=== PATIENT | female | born 1995 | race African-American/Black ===

== ENCOUNTER 2016-08-04 22:09 | Emergency (ER) | payer OTHER ==
[2016-08-04 22:41] LABS: Pregu Control Bar Appear? YES (CONTROL BAR); Specific Gravity 1.029 (1.002-1.036)
[2016-08-04] MEDS ORDERED: predniSONE 20 MG TAB ONE (22:47)
[2016-08-04] MEDS ORDERED: Azithromycin 250 MG TAB ONE (22:47)
[2016-08-04] MEDS ORDERED: Benzonatate 100 MG CAP ONE (22:47)
== END 2016-08-04 22:58 | disposition home or self-care (01) ==
LOC: NAV ERS 22:09
DX: J20.9 Acute bronchitis, unspecified (principal)
CPT/HCPCS: 81025; 94640; J7506; J7620

== ENCOUNTER 2016-11-02 21:44 | Emergency (ER) | payer OTHER, SELFPAY ==
[2016-11-02 22:17] LABS: Bilirubin Negative (Negative); Blood, Urine Negative (Negative); Clarity Clear (Clear); Glucose, Urine (Dipstick) Negative (Negative); Leukocyte Negative (Negative); Nitrite Negative (Negative); Protein, Urine (Dipstick) Negative (Neg-Trace); pH, Urine 7.5 (5.0-9.0)
[2016-11-02 22:18] LABS: Pregnancy Test - Urine (BHCG) POSITIVE (NEGATIVE); Pregu Control Background? CLEAR/WHITE (CLR/WHITE); Pregu Control Bar Appear? YES (CONTROL BAR)
[2016-11-02 22:24] LABS: Amphetamine Not Detected (NotDetected); Barbiturates Screen Not Detected (NotDetected); Benzodiazepine Screen Not Detected (NotDetected); Cocaine Metabolite Screen Not Detected (NotDetected); Medtox Control Line Valid? VALID (VALID); Methadone Not Detected (NotDetected); Methamphetamine Not Detected (NotDetected); Opiate Screen Not Detected (NotDetected); Oxycodone Screen Not Detected (NotDetected); Phencyclidine (PCP) Not Detected (NotDetected); THC/Cannabinoid Screen Not Detected (NotDetected); Tricyclic Screen Not Detected (NotDetected)
[2016-11-02] MEDS ORDERED: Acetaminophen 325 MG TAB ONE (22:36)
== END 2016-11-02 22:46 | disposition home or self-care (01) ==
LOC: NAV ERS 21:44
DX: O99.89 Other specified diseases and conditions complicating pregnancy, childbirth and the puerperium (principal); R51 Headache
CPT/HCPCS: 80306; 81003; 81025; 99284

== ENCOUNTER 2016-11-07 12:36 | Emergency (ER) | payer SELFPAY | END 2016-11-07 14:04 | disposition home or self-care (01) | LOC: NAV ERS 12:36 | DX: O20.0 Threatened abortion (principal) | CPT/HCPCS: 99283 ==

== ENCOUNTER 2017-03-04 20:25 | Emergency (ER) | payer OTHER, SELFPAY ==
[2017-03-04] MEDS ORDERED: Ibuprofen 800 MG TAB ONE (20:45)
== END 2017-03-04 20:50 | disposition home or self-care (01) ==
LOC: NAV ERS 20:25
DX: S13.9XXA Sprain of joints and ligaments of unspecified parts of neck, initial encounter (principal); V49.88XA Car occupant (driver) (passenger) injured in other specified transport accidents, initial encounter
CPT/HCPCS: 99283

== ENCOUNTER 2018-04-09 01:00 | Emergency (ER) | payer OTHER, SELFPAY ==
[2018-04-09] MEDS ORDERED: Bupivacaine 0.5% 10 ML VIAL ONE (01:12)
[2018-04-09] MEDS ORDERED: Penicillin V Potassium 250 MG TAB ONE (02:24)
== END 2018-04-09 02:30 | disposition home or self-care (01) ==
LOC: NAV ERS 01:00
DX: K08.89 Other specified disorders of teeth and supporting structures (principal)
CPT/HCPCS: 96372; J3490

== ENCOUNTER 2018-07-03 21:54 | Emergency (ER) | payer SELFPAY ==
[2018-07-03] MEDS ORDERED: Bupivacaine 0.5% 10 ML VIAL ONE (22:06)
[2018-07-03] MEDS ORDERED: Ketorolac Tromethamine 30 MG/ML VIAL ONE (22:22)
== END 2018-07-03 22:45 | disposition home or self-care (01) ==
LOC: NAV ERS 21:54
DX: K08.89 Other specified disorders of teeth and supporting structures (principal)
CPT/HCPCS: 64400; 96372; J1885; J3490

== ENCOUNTER 2018-07-04 17:33 | Emergency (ER) | payer SELFPAY ==
[2018-07-04] MEDS ORDERED: Bupivacaine 0.5% 10 ML VIAL ONE (17:58)
[2018-07-04] MEDS ORDERED: Lidocaine 1% w/Epinephrine 1:100K 30 ML VIAL ONE (17:58)
== END 2018-07-04 18:10 | disposition home or self-care (01) ==
LOC: NAV ERS 17:33
DX: K08.89 Other specified disorders of teeth and supporting structures (principal)
CPT/HCPCS: 64400; J2001; J3490

== ENCOUNTER → 2019-09-26 | Emergency (ER) | payer OTHER, SELFPAY ==
[2019-09-26 17:33] LABS: Bilirubin Negative (Negative); Blood, Urine Negative (Negative); Glucose, Urine (Dipstick) Negative (Negative); Leukocyte Negative (Negative); Nitrite Negative (Negative); Protein, Urine (Dipstick) Negative (Neg-Trace)
[2019-09-26 17:35] LABS: Clarity SL HAZY (Clear)
[2019-09-26 17:57] LABS: #Basophils 0.1 thou/uL (0.0-0.2); #Eosinphils 0.1 thou/uL (0.0-0.7); #Lymphocytes 2.1 thou/uL (1.20-3.40); #Monocytes 0.9 thou/uL (0.11-0.59); #Neutrophils 6.7 thou/uL (1.40-6.50); %Basophils 0.8 % (0.0-1.0); %Eosinophils 1.2 % (0.0-10.0); %Lymphocytes 21.3 % (21.0-51.0); %Monocytes 8.7 % (0.0-10.0); Hemoglobin 11.9 g/dL (12.0-16.0); Mean Corpuscular HGB CONC 30.9 g/dL (32.0-36.0); Mean Corpuscular Hemoglobin 29.5 pg (27.0-31.0); Mean Corpuscular Volume 95.5 fL (78.0-98.0); Mean Platelet Volume 9.1 fL (7.4-10.4); Platelet Count 291 thou/uL (130-400); RBC Distribution Width 12.6 % (11.5-14.5); Red Blood Cell (RBC) Count 4.05 mill/uL (4.20-5.40); White Blood Cell (WBC) Count 9.8 thou/uL (4.8-10.8)
[2019-09-26 18:03] LABS: ALT (SGPT) 15 U/L (8-55); AST (SGOT) 16 U/L (5-34); Albumin 3.5 g/dL (3.5-5.0); Alkaline Phosphatase 116 U/L (40-110); Anion Gap 15 mmol/L (10-20); BUN (Urea Nitrogen) 5 mg/dL (7.0-18.7); Bilirubin, Total 0.2 mg/dL (0.2-1.2); Calc. Creatinine Clearance 0 mL/min (70-130); Calcium 9.4 mg/dL (7.8-10.44); Carbon Dioxide 17 mmol/L (22-29); Chloride 106 mmol/L (98-107); Estimated GFR-MDRD Greater than 90; Glucose 79 mg/dL (70-105); Lipase 28 U/L (8-78); Potassium 4.1 mmol/L (3.5-5.1); Protein, Total 7.5 g/dL (6.0-8.3); Sodium 134 mmol/L (136-145)
== END ==
LOC: NAV ERS 17:03
DX: O99.89 Other specified diseases and conditions complicating pregnancy, childbirth and the puerperium (principal); R10.9 Unspecified abdominal pain; Z3A.26 26 weeks gestation of pregnancy
CPT/HCPCS: 80053; 81003; 83690; 85025; 99284